=== PATIENT | male | born 1945 ===

== ENCOUNTER 2017-09-30 11:08 | Day surgery (SDC) | payer MEDICAID ==
[2017-09-23 12:32] VITALS: BMI 33.0
[2017-09-30] MEDS ORDERED: Propofol 10 mg/ml Inj (20 ML) ONE (12:00)
[2017-09-30] MEDS ORDERED: Methylene Blue 10 mg/mL(10ml) IV ONE (12:23)
[2017-09-30] MEDS ORDERED: Sodium Chloride 0.9% 1,000 ML IV SCH (13:15)
[2017-09-30 13:30] VITALS: RESP 18
[2017-09-30 14:55] VITALS: BP 142/72; PULSE 64; TEMP 97.7; O2SAT 94
== END 2017-09-30 14:24 | disposition home or self-care (01) ==
LOC: ENDO 11:08
PROVIDERS: ATTEND Internal Medicine Gastroenterology
DX: D12.6 Benign neoplasm of colon, unspecified (principal); K57.30 Diverticulosis of large intestine without perforation or abscess without bleeding; K64.8 Other hemorrhoids; E11.9 Type 2 diabetes mellitus without complications; Z79.84 Long term (current) use of oral hypoglycemic drugs; Z90.49 Acquired absence of other specified parts of digestive tract
CPT/HCPCS: 45381; 45385; 82948; 88305; J2704; J7040 ×2

== ENCOUNTER 2018-03-20 07:31 | Day surgery (SDC) | payer MEDICAID ==
[2018-03-16 12:37] VITALS: BMI 33.9
--- NOTE | 2018-03-18 01:38 | HP ---
Copied To: Nikolay Mariee MD Attending MD: Nikolay Mariee MD REASON FOR DICTATION: Admitted for left heart cath, possible angioplasty, abnormal stress test. BRIEF CLINICAL HISTORY: This is a 72-year-old male with a past medical history significant for hypertension 20 years, type 2 diabetes more than 20 years, history of angina with increasing shortness of breath and chest pain on exertion, who underwent a stress test and found to be abnormal. The patient is scheduled for elective cardiac cath, possible angioplasty. PAST MEDICAL HISTORY: Significant for hypertension, diabetes, hyperlipidemia. History of angina, admitted to [place], where patient was treated medically and discharged home. Recent cardiac workup as follows: The patient had a stress test on 02/24/2018 that shows probably abnormal myocardial perfusion study, partially reversible small apical defect suspicious with ischemia, fixed defect secondary to diaphragmatic attenuation, ejection fraction 70% dated 02/24/2018. The patient had echocardiography also done on 02/24/2018 that shows trace mitral regurgitation, trace tricuspid regurgitation. Ejection fraction 55 to 60%, mild concentric LVH. CURRENT MEDICATIONS: The patient is taking omega 3 fatty acid 1 g twice, levothyroxine 125 mcg daily, glimepiride 2 mg b.i.d., Proscar(finasteride) 5 mg daily, enalapril, Vasotec 5 mg daily, bisoprolol and hydrochlorothiazide that is Ziac 5 mg/6.25 of hydrochlorothiazide 1 tablet daily, aspirin 81 mg daily, Flomax 0.4 mg daily, Januvia 50 mg daily, Ditropan XL 10 mg daily, omeprazole 40 mg daily, metformin 1 g twice a day, atorvastatin 20 mg daily. ALLERGIES: NO KNOWN DRUG ALLERGIES. REVIEW OF SYSTEMS: As per HPI. Occasionally patient feels chest pain on exertion, otherwise as per HPI. PHYSICAL EXAMINATION: As follows: VITAL SIGNS: Height of the patient is 5 feet 6 inches, weight of the patient 210 pounds, body mass index 34 kg/mg2. Rest of the vital signs, temperature afebrile, heart rate 60, blood pressure 130/80. HEENT: PERRLA. Extraocular muscles intact. NECK: Supple. No carotid bruit or thyromegaly. CHEST: Clear to auscultation. HEART: S1 and S2 regular. ABDOMEN: Soft. EXTREMITIES: Clubbing, cyanosis negative. LABORATORY DATA: Blood workup pending. 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 History of diabetes, hypertension, hyperlipidemia, multiple history of coronary artery disease and patient with abnormal stress test, small anterior ischemia, high probability of coronary artery disease. PLAN: We will load aspirin, Plavix. Risks, benefits and alternatives discussed with the patient. The patient will proceed for cardiac catheterization, further recommendation after cardiac catheterization. We will review the blood workup when it will be available. Thank you Dr. Ricardo Boyer for providing this opportunity in taking of the patient Paolo Ontiveros. Nikolay Mariee MD [facility]
[2018-03-20 08:17] LABS: BLOOD UREA NITROGEN 15 mg/dL (7-21); CALCIUM 9.6 mg/dL (8.4-10.5); GFR AFRICAN-AMERICAN > 60; GFR NON-AFRICAN AMERICAN > 60; HDL CHOLESTEROL 37 mg/dL (29-60); INR 1.03; PARTIAL THROMBOPLASTIN TIME 28.9 Seconds (25.1-36.5); PROTHROMBIN TIME 11.8 SECONDS (9.4-12.5)
[2018-03-20 08:23] LABS: BASO # 0.03 K/mm3 (0.0-2.0); BASO % 0.7 % (0.0-3.0); EOS # 0.1 (0.0-0.7); EOS % 2.7 % (1.5-5.0); GRAN # 2.08 (1.4-6.5); GRAN % 46.6 % (50.0-68.0); HEMOGLOBIN 13.8 g/dL (14.0-18.0); LYMPH # 1.8 (1.2-3.4); LYMPH % 40.4 % (22.0-35.0); MEAN CELL VOLUME 81.6 fl (80.0-105.0); MEAN CORPUSCULAR HEMOGLOBIN 27.6 pg (25.0-35.0); MEAN CORPUSCULAR HGB CONC 33.8 g/dl (31.0-37.0); MEAN PLATELET VOLUME 10.1 fl (7.0-11.0); MONO # 0.4 (0.1-0.6); MONO % 9.6 % (1.0-6.0); RED CELL DISTRIBUTION WIDTH 13.3 % (11.5-14.5); WHITE BLOOD COUNT 4.5 10^3/ul (4.5-11.0)
[2018-03-20 08:28] LABS: LDL CHOLESTEROL 40 mg/dL (0-129)
[2018-03-20] MEDS ORDERED: Phenylephrine 10 mg/ml Inj ONE (08:54)
[2018-03-20] MEDS ORDERED: Lidocaine PF 2% (5 ml) Inj (For Cardiac Arrhy) ONE (08:54)
[2018-03-20] MEDS ORDERED: Iodixanol 320 MG/ML 200 ML BOTTLE IV ONE (08:55)
[2018-03-20] MEDS ORDERED: Iohexol 350mgl/ml 50 ML ONE (08:55)
[2018-03-20] MEDS ORDERED: Nitroglycerin 50mg in D5W 50 MG/250 ML BOTTLE IV ONE (08:55)
[2018-03-20] MEDS ORDERED: Iohexol 350 MG/100 ML VIAL ONE (08:55)
[2018-03-20] MEDS ORDERED: Verapamil 2 ML ONE (08:55)
[2018-03-20] MEDS ORDERED: Midazolam 2 MG/2 ML VIAL ONE (09:58)
[2018-03-20] MEDS ORDERED: Eptifibatide 20 mg/10mL Inj IVP ONE (10:17)
[2018-03-20] MEDS ORDERED: Iodixanol 320 MG/ML 100 ML BOTTLE IV ONE (10:40)
[2018-03-20] MEDS ORDERED: Eptifibatide 0.75 mg/ml 75 MG/100 ML BOTTLE IV ONE (11:05)
[2018-03-20] MEDS ORDERED: Sodium Chloride 0.9% 1,000 ML IV SCH (11:45)
--- NOTE | 2018-03-20 11:59 | CPOSTOP ---
Copied To: Nikolay Mariee MD Attending MD: Nikolay Mariee MD DATE: 03/20/2018 CARDIOVASCULAR LAB POST PROCEDURE NOTE DICTATING PHYSICIAN: Nikolay Mariee MD. 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 TYPE OF ANESTHESIA: Moderate conscious sedation. Total of 2 mg of Versed, 100 of fentanyl given periodically, started 1 mg of Versed and 50 of fentanyl. PRE-PROCEDURE DIAGNOSES: Chest pain, abnormal stress test. PROCEDURE PERFORMED: Left heart catheterization and angioplasty of distal circumflex, percutaneous transluminal coronary angioplasty of circumflex with drug-eluting stent. FINDINGS: One-vessel disease. Distal circ 90% stenosis noted. Mild disease in RCA. FINAL DIAGNOSIS: Critical one-vessel disease. POST PROCEDURE CONDITION: Post procedure, the patient's condition is stable. VASCULAR ACCESS: Left radial artery. CLOSURE DEVICE: TR Band. TOTAL RADIATION DOSE: 43,978.6 milligray unit. FLUORO TIME: 24.4 minutes. Nikolay Mariee MD
[2018-03-20] MEDS: Eptifibatide 0.75 mg/ml 75 MG/100 ML BOTTLE IV SCH ×2 (14:55→23:52)
[2018-03-20] MEDS ORDERED: Bacitracin 500 Units/gm Oint Foilpak UD ONE (16:19)
[2018-03-20 16:31] LABS: BASO # 0.01 K/mm3 (0.0-2.0); BASO % 0.2 % (0.0-3.0); EOS % 0.7 % (1.5-5.0); GRAN # 2.97 (1.4-6.5); GRAN % 73.6 % (50.0-68.0); HEMOGLOBIN 13.8 g/dL (14.0-18.0); LYMPH # 0.7 (1.2-3.4); LYMPH % 16.8 % (22.0-35.0); MEAN CELL VOLUME 82.4 fl (80.0-105.0); MEAN CORPUSCULAR HEMOGLOBIN 27.9 pg (25.0-35.0); MEAN CORPUSCULAR HGB CONC 33.8 g/dl (31.0-37.0); MONO # 0.4 (0.1-0.6); MONO % 8.7 % (1.0-6.0); RBC 4.95 10^6/uL (3.5-6.1); RED CELL DISTRIBUTION WIDTH 13.3 % (11.5-14.5)
[2018-03-20 16:36] LABS: BLOOD UREA NITROGEN 16 mg/dL (7-21); CALCIUM 9.4 mg/dL (8.4-10.5); GFR AFRICAN-AMERICAN > 60; GFR NON-AFRICAN AMERICAN 59
--- NOTE | 2018-03-20 17:24 | CARD ---
APPROVED REPORT Date of service: 03/20/2018 Procedure(s) performed: Left Heart Catheterization PTCA with Stenting ofDistal Cx HISTORY The patient is a 72 year-old male with a history of : most recent EF: 70%. (EF Method: RADIONUCLIDE), peripheral vascular disease, diabetes mellitus with oral treatment , tobacco history() : The patient is a former smoker , hypertension , dyslipidemia , Had an abnormal Stress test. INDICATION The indication(s) include : positive stress test. CASE TECHNIQUE The patient was brought electively to the Cardiac Catheterization Laboratory in a fasting state and was prepped and draped in a sterile manner. The left wrist was infiltrated with 2% Lidocaine subcutaneous anesthesia. A 6FR GLIDESHEATH ACCESS KIT sheath was inserted into the left radial artery without difficulty. Coronary angiography was performed using coronary diagnostic catheters. The left coronary system was accessed and visualized with a Diagnostic ,5F JL 4 CATH DXT 100 CM catheter. The right coronary system was accessed and visualized with a Diagnostic ,5F JR 4 CATH DXT 100 CM catheter. The left ventricle was accessed and visualized with a 5F PIGTAIL 145 CATH DXT 110 CM catheter. Left ventricular/Aortic Valve gradient assessed on pullback. Left ventriculogram was performed in VILLARREAL projection. Closure device was deployed with a Fr TR Band (Large) without any complications. The patient tolerated the procedure well and there were no complications associated with the procedure. Vessel Analysis The patient's coronary anatomy is co-dominant. The left main coronary artery is a medium size vessel with diffuse calcification noted throughout this vessel and without significant stenosis. The left main bifurcates to the left anterior descending and circumflex. The left anterior descending artery is a medium size vessel with diffuse calcification noted throughout this vessel and without significant stenosis. There is a 30-40% stenosis in the mid segment. The first diagonal branch is a small size vessel with diffuse calcification noted throughout this vessel and without significant stenosis. The second diagonal branch is a small size vessel with diffuse calcification noted throughout this vessel and without significant stenosis. The third diagonal branch is a small size vessel with diffuse calcification noted throughout this vessel and without significant stenosis. The circumflex artery is a medium size vessel with diffuse calcification noted throughout this vessel and with significant stenosis. There is a 90% stenosis in the distal segment. The first obtuse marginal branch is a small size vessel with diffuse calcification noted throughout this vessel and without significant stenosis. The second obtuse marginal branch is a large size vessel with diffuse calcification noted throughout this vessel and with significant stenosis. The third obtuse marginal branch is a small size vessel with diffuse calcification noted throughout this vessel and without significant stenosis. The left posterior descending artery is a small size vessel with diffuse calcification noted throughout this vessel and without significant stenosis. The right coronary artery is a large size vessel with diffuse calcification noted throughout this vessel and without significant stenosis. There is a 30-40% stenosis in the mid segment. The right posterior descending artery is a medium size vessel with diffuse calcification noted throughout this vessel and without significant stenosis. The right posterolateral branch is a small size vessel with diffuse calcification noted throughout this vessel and without significant stenosis. Left Ventricle The left ventricle is normal in size with normal contractility. There was no cardiomyopathy. The left ventricular ejection fraction is estimated to be 55-60%. The left ventricular end diastolic pressure is 18 mmHg. There was 10 mm gradient across aortic valve C/w mild , on pull back. PCI Technique Lesion Anticoagulation was achieved with Heparin and integrellin Bollus. Percutaneous coronary intervention was performed on the distal circumflex artery segment. The lesion stenosis prior to intervention was 90% with LULI 2 flow. A 6 Fr JL 3.5 Launcher Guide Catheter was used to engage the ostium. A Luge 182 Interventional Guidewire was used to cross the lesion. BALLOON DILATION A Balloon catheter 2.5 x 15 mm Sprinter RX was inserted and inflated up to 5.00atm for 35seconds. STENT DEPLOYMENT A drug-eluting stent STENT RESOLUTE MONI 2.75 X18 was inserted and inflated up to 12.00atm for 14seconds. POST STENT DEPLOYMENT BALLOON DILATION A Balloon catheter 2.75 x 8 mm Trek RX NC was inserted and inflated up to 14.00atm for 12seconds. Final angiography reveals 0 % stenosis with LULI 3 flow. Conclusion Single vessel critical Diz involving distal Cx. Mild to moderate diz in Mid and proximal RCA preserved Lv Fx. Ef-55-60%, EDP-15-18 mmof hg. Successful PTCA with Jasmeet of distal Cx. Recommendations Daily ASA with Plavix for at least one year Aggressive Medical TherapyCardiac Risk Reduction Program Weight Loss Reduction Program Cc; Dr. Merlin Silva MD/ Noah Sadler MD
[2018-03-20] MEDS: Omega-3-Acid Ethyl Esters 1 GM Cap PO SCH (17:32)
[2018-03-20] MEDS: Insulin Reg-LOW-Coverage SC SCH ×2 (17:33→23:26)
--- NOTE | 2018-03-20 20:00 | CARD ---
APPROVED REPORT Date of service: 03/20/2018 EKG Measurement Heart [id number] <Conclusion> Normal sinus rhythm Right bundle branch block Left anterior fascicular block Bifascicular block Abnormal ECG
--- NOTE | 2018-03-20 21:27 | CARD ---
APPROVED REPORT Date of service: 03/20/2018 EKG Measurement Heart [id number] <Conclusion> Normal sinus rhythm Right bundle branch block Left anterior fascicular block Bifascicular block Abnormal ECG
[2018-03-21 02:58] VITALS: RESP 20
[2018-03-21 06:04] VITALS: TEMP 98.8; O2SAT 94
[2018-03-21] MEDS: Eptifibatide 0.75 mg/ml 75 MG/100 ML BOTTLE IV SCH (06:14)
[2018-03-21] MEDS ORDERED: Pantoprazole 40 mg EC Tab PO SCH (07:30)
--- NOTE | 2018-03-21 07:38 | CP.PCM.PN ---
Subjective - Date & Time of Evaluation Date of Evaluation: 03/21/18 Time of Evaluation: 06:20 - Subjective Subjective: Awake,alert, no distress, denies chest pain Reason for admission and follow up: abnormal tress test, Status post cardiac catheterization and angioplasty of distal circumflex and PTCA wit TYREE of circumflex,history of hypertension, diabetes, hyperlipidemia. Seen and examined by me and Dr. Mariee Objective - Vital Signs/Intake and Output Vital Signs (last 24 hours): Temp Pulse Resp BP Pulse Ox 98.8 F 60 20 115/61 94 L 03/21/18 06:00 03/21/18 06:00 03/21/18 06:00 03/21/18 06:00 03/21/18 06:00 Intake and Output: 03/21/18 03/21/18 06:59 18:59 Intake Total 940 Balance 940 - Medications Medications: Current Medications Aspirin (Ecotrin) 81 mg PO DAILY [facility] Atorvastatin Calcium (Lipitor) 20 mg PO DAILY [facility] Clopidogrel Bisulfate (Plavix) 75 mg PO DAILY [facility] Finasteride (Proscar) 5 mg PO DAILY [facility] Glimepiride (Amaryl) 2 mg PO BID [facility] Last Admin: 03/20/18 17:32 Dose: 2 mg Hydrochlorothiazide (Microzide) 12.5 mg PO DAILY [facility] Stop: 03/21/18 23:59 Insulin Human Regular (Humulin R Low) 0 units SC [facility] PRN Reason: Protocol Last Admin: 03/20/18 23:26 Dose: Not Given Levothyroxine Sodium (Synthroid) 125 mcg PO DAILY [facility] Lisinopril (Zestril) 5 mg PO DAILY [facility] Metformin HCl (Glucophage) 1,000 mg PO BID [facility] Metoprolol Tartrate (Lopressor) 25 mg PO BID [facility] Stop: 03/21/18 23:59 Last Admin: 03/20/18 17:32 Dose: 25 mg Non-Formulary Medication (Oxybutynin Xl [Ditropan Xl]) 10 mg PO DAILY [facility] Non-Formulary Medication (Bisoprolol/Hctz [Ziac 5-6.25 Mg]) 1 tab PO DAILY [facility] Oxaoy-1-Khyx Ethyl Esters (Lovaza) 1 gm PO BID [facility] Last Admin: 03/20/18 17:32 Dose: 1 gm Pantoprazole Sodium (Protonix Ec Tab) 40 mg PO ACB JENNIFER Sitagliptin Phosphate (Januvia) 50 mg PO DAILY JENNIFER Tamsulosin HCl (Flomax) 0.4 mg PO DAILY JENNIFER - Labs Labs: 03/20/18 16:03 03/20/18 16:03 PT 11.8 SECONDS (9.4-12.5) 03/20/18 07:55 INR 1.03 03/20/18 07:55 APTT 28.9 Seconds (25.1-36.5) 03/20/18 07:55 - Constitutional Appears: No Acute Distress - Eye Exam Eye Exam: Normal appearance - ENT Exam ENT Exam: Mucous Membranes Moist - Respiratory Exam Respiratory Exam: Decreased Breath Sounds, NORMAL BREATHING PATTERN - Cardiovascular Exam Cardiovascular Exam: REGULAR RHYTHM, +S1, +S2 - GI/Abdominal Exam GI & Abdominal Exam: Soft, Normal Bowel Sounds - Extremities Exam Extremities Exam: Normal Capillary Refill Additional comments: left radial positive pulses,no bleeding,no hematoma - Neurological Exam Neurological Exam: Alert, Awake, Oriented x3 - Psychiatric Exam Psychiatric exam: Normal Affect - Skin Skin Exam: Dry, Warm Assessment and Plan - Assessment and Plan (Free Text) Assessment: A 72 year old male who came in to [facility] [place], [place] for elective cardiac catheterization and possible PTCA due to abnormal stress test. History of hypertension, diabetes, hyperlipidemia, former smoker. Status post cardiac catheterization and angioplasty of distal circumflex and PTCA with TYREE of circumflex (90 % stenosis ) mild disease on RCA.On Integrilin drip. Plan: Denies chest pain,comfortable left radial with pulses, no bleeding, no hematoma Heart rate and blood pressure controlled Cardiac status stable Continue ASA and Plavix for at least one year Life style modification Weight reduction Continue current medications Continue current treatment Possible discharge after Integrilin drip Follow up in office 1-2 weeks post discharge Plan and treatment discussed with Dr. Mariee
[2018-03-21 07:39] LABS: BASO # 0.01 K/mm3 (0.0-2.0); BASO % 0.2 % (0.0-3.0); EOS # 0.1 (0.0-0.7); EOS % 1.1 % (1.5-5.0); GRAN # 3.48 (1.4-6.5); GRAN % 73.6 % (50.0-68.0); LYMPH # 0.7 (1.2-3.4); LYMPH % 15.4 % (22.0-35.0); MEAN CELL VOLUME 81.9 fl (80.0-105.0); MEAN CORPUSCULAR HEMOGLOBIN 27.4 pg (25.0-35.0); MEAN CORPUSCULAR HGB CONC 33.5 g/dl (31.0-37.0); MEAN PLATELET VOLUME 10.2 fl (7.0-11.0); MONO # 0.5 (0.1-0.6); MONO % 9.7 % (1.0-6.0); RBC 4.74 10^6/uL (3.5-6.1); RED CELL DISTRIBUTION WIDTH 13.2 % (11.5-14.5); WHITE BLOOD COUNT 4.7 10^3/ul (4.5-11.0)
[2018-03-21 07:51] LABS: ALB/GLOB RATIO 1.3 (1.1-1.8); ALBUMIN 4.2 g/dL (3.0-4.8); ALT/SGPT 38 U/L (7-56); AST/SGOT 89 U/L (17-59); BLOOD UREA NITROGEN 17 mg/dL (7-21); GFR AFRICAN-AMERICAN > 60; GFR NON-AFRICAN AMERICAN 59; HDL CHOLESTEROL 37 mg/dL (29-60)
[2018-03-21 08:02] LABS: LDL CHOLESTEROL 43 mg/dL (0-129)
[2018-03-21] MEDS: Insulin Reg-LOW-Coverage SC SCH (08:32)
[2018-03-21] MEDS: Omega-3-Acid Ethyl Esters 1 GM Cap PO SCH (09:19)
[2018-03-21 09:22] VITALS: BP 118/67
[2018-03-21] MEDS ORDERED: Non Formulary Medication (Enalapril Maleate [Vasotec] 5 MG) PO SCH (10:00)
[2018-03-21] MEDS ORDERED: Levothyroxine 125 MCG TAB PO SCH (10:00)
[2018-03-21] MEDS ORDERED: Non Formulary Medication (Bisoprolol/Hctz [Ziac 5-6.25 Mg] 1 TAB) PO SCH ×2 (10:00)
[2018-03-21] MEDS ORDERED: Non Formulary Medication (Omeprazole [Omeprazole] 40 MG) PO SCH (10:00)
[2018-03-21] MEDS ORDERED: OXYBUTYNIN 10 MG PO SCH ×2 (10:00)
[2018-03-21] MEDS ORDERED: Magnesium Oxide 400 mg Tab UD PO STA (10:26)
[2018-03-21 11:31] VITALS: PULSE 71
--- NOTE | 2018-03-21 13:14 | DS ---
Copied To: Nikolay Mariee MD Attending MD: Nikolay Mariee MD BRIEF CLINICAL HISTORY: This is a 72-year-old male with past medical history of diabetes, hypertension, hyperlipidemia, abnormal stress test. The patient underwent cardiac catheterization and stenting of circumflex. Subsequently, the hospital course remained uneventful. The patient is currently being Dr. Mariee in 1 week. MEDICATIONS AT DISCHARGE: Include glimepiride 2 mg daily, aspirin 81 mg daily, Flomax 0.4 mg daily, metformin 1 g twice a day, Januvia 50 mg daily, atorvastatin 20 mg daily, metoprolol 25 mg daily, hydrochlorothiazide 12.5 mg daily, Plavix 75 mg daily, levothyroxine 125 mcg daily, lisinopril 5 mg daily. PHYSICAL EXAMINATION: Today's examination of the patient as follows; VITAL SIGNS: Temperature afebrile, heart rate 66, blood pressure 118/66. HEENT: PERRLA. Extraocular muscles intact. NECK: Supple. No carotid bruit. No thyromegaly. CHEST: Clear to auscultation. HEART: S1 and S2 regular. ABDOMEN: Soft. EXTREMITIES: Clubbing and cyanosis negative. LABORATORY DATA: Blood workup as follows: WBC 4.7, hemoglobin 13, hematocrit 38.8, platelet count 208. Chemistry shows sodium 130, potassium 4.2, chloride 101, carbon dioxide 25, anion gap of 17, BUN 17, creatinine 1.2. TSH 0.43. IMPRESSION: Status post percutaneous transluminal coronary angioplasty of circumflex, left heart catheterization, stable. Magnesium low, we will supplement magnesium. We will discharge the patient. Follow up with Dr. Mariee in one week. Nikolay Mariee MD
[2018-03-22] MEDS ORDERED: Non Formulary Medication (Bisoprolol/Hctz [Ziac 5-6.25 Mg] 1 TAB) PO SCH (10:00)
== END 2018-03-21 13:04 | disposition home or self-care (01) ==
LOC: CATH 07:31 → 2RSO 11:41 → CATH 03-21 13:04
PROVIDERS: ATTEND Internal Medicine Cardiovascular Disease
DX: I25.10 Atherosclerotic heart disease of native coronary artery without angina pectoris (principal); I10 Essential (primary) hypertension; E11.51 Type 2 diabetes mellitus with diabetic peripheral angiopathy without gangrene; E78.5 Hyperlipidemia, unspecified; I45.10 Unspecified right bundle-branch block; Z79.02 Long term (current) use of antithrombotics/antiplatelets; Z79.82 Long term (current) use of aspirin; Z79.84 Long term (current) use of oral hypoglycemic drugs; Z87.891 Personal history of nicotine dependence
CPT/HCPCS: 36415 ×2; 80048; 80053; 80061 ×2; 82948 ×2; 83036; 83735; 84100; 84443; 85025 ×2; 85175; 85610; 85730; 86850; 86900; 93005; 93458; 99152; C1725 ×3; C1769 ×2; C1874; C1887 ×3; C9600; J1327 ×3; J1644 ×2; J1940; J2250; J2370; J3010; J7030; Q9966; Q9967 ×3

== ENCOUNTER 2018-10-30 08:26 | Outpatient (CLI) | payer MEDICAID | END 2018-10-30 08:27 | disposition home or self-care (01) | LOC: RAD 08:26 ==

== ENCOUNTER 2018-11-06 08:36 | Outpatient (CLI) | payer MEDICAID | END 2018-11-06 08:37 | disposition home or self-care (01) | LOC: CARDIO 08:36 ==